=== PATIENT | female | born 1995 | race African-American/Black ===

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

== ENCOUNTER 2018-02-12 11:06 | Emergency (ER) | payer OTHER ==
[~2018-02-12] VITALS: Ht 165.1 cm; Wt 56.7 kg
[~2018-02-12 11:06] MED LIST changes: +BENTYL10 M1 PO; +ZOFRAN ODT4 M1 SL
[2018-02-12 11:36] VITALS: BP 111/68
[2018-02-12] MEDS ORDERED: CEPHALEXIN500 M3 PO (11:39)
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
== END 2018-02-12 11:45 ==
LOC: ERH 11:06
DX: Z48.02 Encounter for removal of sutures (principal)